=== PATIENT | male | born 1950 | race African-American/Black ===

== ENCOUNTER 2018-10-17 14:40 | Inpatient (IN) ==
[2018-10-17] MEDS ORDERED: ONDANSETRON 4 MG/2 ML VIAL IV STA (16:05)
[2018-10-17 16:49] LABS: Basophils % 0.4 % (0.0-0.8); Eosinophils % 0.4 % (0.00-10.9); Hematocrit 32.3 VOL% (42.0-52.0); Hemoglobin 10.2 GM/DL (14.0-18.0); Immature Granulocytes % 0.4 %; Immature Granulocytes Absolute 0.02 #; Lymphocytes # 1.5 10*3/uL (1.4-4.0); Lymphocytes % 30.8 % (21.2-54.2); Mean Corpuscular HGB Conc 31.6 GM/DL (32-36); Mean Platelet Volume 10.4 FL (9.6-12.0); Monocytes % 7.9 % (1.7-12.7); Neutrophils % 60.1 % (38.7-73.9); Platelet Count 223 T/CUMM (130-400); Red Blood Count 3.63 MC/CUMM (3.8-5.5); Red Cell Distribution Width 18.6 % (9.3-17.3); White Blood Count 4.8 T/CUMM (4-12)
[2018-10-17] MEDS ORDERED: ALBUTEROL/IPRATROPIUM 3 ML NEB RESP TX STA (16:49)
[2018-10-17] MEDS ORDERED: MEROPENEM 1,000 MG in SODIUM CHLORIDE 0.9% 100 ML IV STA ×2 (16:49→16:50)
[2018-10-17 17:13] LABS: Alanine Aminotransferase 11 U/L (16-61); Albumin 2.4 G/DL (3.4-5.0); Alkaline Phosphatase 130 U/L (45-117); Aspartate Amino Transferase 21 U/L (0-37); Blood Urea Nitrogen 70 MG/DL (7-18); Calcium 7.8 MG/DL (8.5-10.1); Glucose 102 MG/DL (74-106); Osmolality,Calculated 295.7 MOS/KG (273-304); Total Protein 5.9 G/DL (6.4-8.3); Troponin I 0.016 NG/ML (0.00-0.045)
[2018-10-17 17:33] LABS: Apearance,Urine Slightly Hazy (Clear); Blood, Urine Small mg/dL (Negative); Calcium Oxalate Crystals,Urine Occasional /HPF (Few); Glucose,Urine (UA) Negative (Negative); Hyaline Casts,Urine 48 /LPF (0-3); Ketones,Urine 5 mg/dL (Negative); Mucus,Urine Occasional /LPF (Occasional); Nitrite,Urine Negative (Negative); Protein,Urine 30 MG/DL; RBC,Urine 4 /HPF (0-4); Squamous Epithelial Cell,Urine Occasional /HPF (0-10); Urine Specific Gravity 1.026 (1.001-1.035); Urine Urobilinogen < 2.0 EU/DL (0.2-1.0); WBC,Urine 11 /HPF (0-6)
[2018-10-17 17:34] LABS: Bilirubin,Urine Small mg/dL (Negative); Urine Color Yellow (Yellow)
[2018-10-17] MEDS ORDERED: SODIUM POLYSTYRENE SULFATE 15 GM/60 ML BOTTLE PO STA (18:19)
[2018-10-17] MEDS: SODIUM BICARB INJ 50 MEQ in DEXTROSE 5% NACL 0.45% 1,000 ML IV SCH (20:05)
[2018-10-17] MEDS: CARVEDILOL 6.25 MG TABLET PO SCH (21:57)
[2018-10-17 23:03] LABS: Calcium 8.1 MG/DL (8.5-10.1); Osmolality,Calculated 302.4 MOS/KG (273-304)
[2018-10-18] MEDS: SODIUM BICARB INJ 50 MEQ in DEXTROSE 5% NACL 0.45% 1,000 ML IV SCH (05:25)
[2018-10-18] MEDS: MEROPENEM 500 MG in SODIUM CHLORIDE 0.9% 100 ML IV SCH ×2 (05:26→17:18)
[2018-10-18 05:43] LABS: Basophils % 0.5 % (0.0-0.8); Eosinophils % 0.7 % (0.00-10.9); Hematocrit 32.4 VOL% (42.0-52.0); Hemoglobin 10.4 GM/DL (14.0-18.0); Immature Granulocytes % 0.3 %; Immature Granulocytes Absolute 0.02 #; Lymphocytes # 1.4 10*3/uL (1.4-4.0); Lymphocytes % 24.5 % (21.2-54.2); Mean Corpuscular HGB Conc 32.1 GM/DL (32-36); Mean Corpuscular Volume 88.5 FL (87-102); Mean Platelet Volume 10.6 FL (9.6-12.0); Monocytes % 10.7 % (1.7-12.7); Neutrophils % 63.3 % (38.7-73.9); Platelet Count 200 T/CUMM (130-400); Red Blood Count 3.66 MC/CUMM (3.8-5.5); Red Cell Distribution Width 18.4 % (9.3-17.3); White Blood Count 5.9 T/CUMM (4-12)
[2018-10-18 06:16] LABS: Albumin 2.2 G/DL (3.4-5.0); Bilirubin,Total 0.6 MG/DL (0.2-1.0); Calcium 7.9 MG/DL (8.5-10.1); Osmolality,Calculated 304.4 MOS/KG (273-304); Total Protein 5.4 G/DL (6.4-8.3)
[2018-10-18] MEDS: OMEGA 3 ACID ETHYL ESTERS 1 GM CAPSULE PO SCH (09:24)
[2018-10-18] MEDS: CHOLECALCIFEROL 1,000 UNIT TABLET PO SCH (09:24)
[2018-10-18] MEDS: VITAMIN E 400 UNIT CAPSULE PO SCH (09:24)
[2018-10-18] MEDS: CLOPIDOGREL 75 MG TABLET PO SCH (09:24)
[2018-10-18] MEDS: SIMVASTATIN 40 MG TABLET PO SCH (09:24)
[2018-10-18] MEDS: CARVEDILOL 6.25 MG TABLET PO SCH ×2 (09:24→20:59)
[2018-10-18] MEDS: MULTIVITAMIN (CENTRUM) TABLET PO SCH (09:24)
[2018-10-18] MEDS: ASPIRIN EC 81 MG TABLET PO SCH (09:24)
[2018-10-18] MEDS ORDERED: SODIUM POLYSTYRENE SULFATE 15 GM/60 ML BOTTLE PO ONE (12:34)
[2018-10-19] MEDS: MEROPENEM 500 MG in SODIUM CHLORIDE 0.9% 100 ML IV SCH ×2 (05:06→16:42)
[2018-10-19 05:17] LABS: Basophils % 0.4 % (0.0-0.8); Eosinophils # 0.1 10*3/uL (0.0-0.87); Eosinophils % 1.5 % (0.00-10.9); Hematocrit 27.9 VOL% (42.0-52.0); Hemoglobin 9.1 GM/DL (14.0-18.0); Immature Granulocytes % 0.4 %; Immature Granulocytes Absolute 0.02 #; Lymphocytes # 1.7 10*3/uL (1.4-4.0); Lymphocytes % 31.6 % (21.2-54.2); Mean Corpuscular HGB Conc 32.6 GM/DL (32-36); Mean Corpuscular Volume 87.5 FL (87-102); Mean Platelet Volume 10.2 FL (9.6-12.0); Neutrophils % 52.1 % (38.7-73.9); Platelet Count 183 T/CUMM (130-400); Red Blood Count 3.19 MC/CUMM (3.8-5.5); Red Cell Distribution Width 18.3 % (9.3-17.3); White Blood Count 5.3 T/CUMM (4-12)
[2018-10-19 05:34] LABS: Alanine Aminotransferase 10 U/L (16-61); Alkaline Phosphatase 116 U/L (45-117); Aspartate Amino Transferase 17 U/L (0-37); Bilirubin,Total < 0.39 MG/DL (0.2-1.0); Blood Urea Nitrogen 71 MG/DL (7-18); Calcium 7.4 MG/DL (8.5-10.1); Glucose 144 MG/DL (74-106)
[2018-10-19] MEDS: ASPIRIN EC 81 MG TABLET PO SCH (09:32)
[2018-10-19] MEDS: CLOPIDOGREL 75 MG TABLET PO SCH (09:33)
[2018-10-19] MEDS: CARVEDILOL 6.25 MG TABLET PO SCH (09:33)
[2018-10-19] MEDS: OMEGA 3 ACID ETHYL ESTERS 1 GM CAPSULE PO SCH (09:33)
[2018-10-19] MEDS: CHOLECALCIFEROL 1,000 UNIT TABLET PO SCH (09:34)
[2018-10-19] MEDS: VITAMIN E 400 UNIT CAPSULE PO SCH (09:34)
[2018-10-19] MEDS: SIMVASTATIN 40 MG TABLET PO SCH (09:34)
[2018-10-19] MEDS: MULTIVITAMIN (CENTRUM) TABLET PO SCH (09:34)
[2018-10-19] MEDS: SODIUM BICARB INJ 100 MEQ in DEXTROSE 5% NACL 0.45% 1,000 ML IV SCH ×2 (11:27→20:42)
[2018-10-19] MEDS: LACTOBACILLUS ACIDOPHILUS/BULGARICUS CAPLET PO SCH (20:41)
[2018-10-19] MEDS: CARVEDILOL 3.125 MG TABLET PO SCH (20:41)
[2018-10-20] MEDS: MEROPENEM 500 MG in SODIUM CHLORIDE 0.9% 100 ML IV SCH ×2 (04:54→17:20)
[2018-10-20 06:32] LABS: Basophils % 0.5 % (0.0-0.8); Eosinophils # 0.1 10*3/uL (0.0-0.87); Eosinophils % 1.2 % (0.00-10.9); Hematocrit 27.8 VOL% (42.0-52.0); Hemoglobin 9.1 GM/DL (14.0-18.0); Immature Granulocytes % 0.5 %; Immature Granulocytes Absolute 0.03 #; Lymphocytes # 1.3 10*3/uL (1.4-4.0); Lymphocytes % 20.5 % (21.2-54.2); Mean Corpuscular HGB Conc 32.7 GM/DL (32-36); Mean Corpuscular Volume 86.6 FL (87-102); Mean Platelet Volume 10.8 FL (9.6-12.0); Monocytes % 14.9 % (1.7-12.7); Neutrophils % 62.4 % (38.7-73.9); Platelet Count 177 T/CUMM (130-400); Red Blood Count 3.21 MC/CUMM (3.8-5.5); Red Cell Distribution Width 18.5 % (9.3-17.3); White Blood Count 6.5 T/CUMM (4-12)
[2018-10-20 07:14] LABS: Albumin 1.8 G/DL (3.4-5.0); Bilirubin,Total 0.4 MG/DL (0.2-1.0); Calcium 7.2 MG/DL (8.5-10.1); Osmolality,Calculated 305.8 MOS/KG (273-304); Total Protein 4.8 G/DL (6.4-8.3)
[2018-10-20] MEDS: LACTOBACILLUS ACIDOPHILUS/BULGARICUS CAPLET PO SCH ×2 (08:39→21:12)
[2018-10-20] MEDS: ASPIRIN EC 81 MG TABLET PO SCH (08:40)
[2018-10-20] MEDS: MULTIVITAMIN (CENTRUM) TABLET PO SCH (08:40)
[2018-10-20] MEDS: CHOLECALCIFEROL 1,000 UNIT TABLET PO SCH (08:40)
[2018-10-20] MEDS: CLOPIDOGREL 75 MG TABLET PO SCH (08:40)
[2018-10-20] MEDS: OMEGA 3 ACID ETHYL ESTERS 1 GM CAPSULE PO SCH (08:41)
[2018-10-20] MEDS: CARVEDILOL 3.125 MG TABLET PO SCH ×2 (08:41→08:47)
[2018-10-20] MEDS: VITAMIN E 400 UNIT CAPSULE PO SCH (08:41)
[2018-10-20] MEDS: SODIUM BICARB INJ 100 MEQ in DEXTROSE 5% NACL 0.45% 1,000 ML IV SCH ×2 (10:11→21:15)
[2018-10-20] MEDS: SODIUM BICARB INJ 50 MEQ in DEXTROSE 5% NACL 0.45% 1,000 ML IV SCH (14:56)
[2018-10-20] MEDS: CHOLESTYRAMINE 4 GM PACK PO SCH (21:12)
[2018-10-20] MEDS: SIMVASTATIN 40 MG TABLET PO SCH (21:13)
[2018-10-21] MEDS: CARVEDILOL 3.125 MG TABLET PO SCH ×3 (04:08→20:36)
[2018-10-21 05:14] LABS: Basophils % 0.2 % (0.0-0.8); Eosinophils # 0.1 10*3/uL (0.0-0.87); Eosinophils % 1.2 % (0.00-10.9); Hematocrit 25.2 VOL% (42.0-52.0); Hemoglobin 8.3 GM/DL (14.0-18.0); Immature Granulocytes % 0.8 %; Immature Granulocytes Absolute 0.05 #; Lymphocytes # 1.7 10*3/uL (1.4-4.0); Lymphocytes % 27.8 % (21.2-54.2); Mean Corpuscular HGB Conc 32.9 GM/DL (32-36); Mean Corpuscular Volume 85.4 FL (87-102); Monocytes % 13.8 % (1.7-12.7); Neutrophils % 56.2 % (38.7-73.9); Platelet Count 162 T/CUMM (130-400); Red Blood Count 2.95 MC/CUMM (3.8-5.5); Red Cell Distribution Width 18.5 % (9.3-17.3)
[2018-10-21] MEDS: MEROPENEM 500 MG in SODIUM CHLORIDE 0.9% 100 ML IV SCH ×2 (05:20→18:11)
[2018-10-21 05:30] LABS: Albumin 1.7 G/DL (3.4-5.0); Bilirubin,Total 0.4 MG/DL (0.2-1.0); Osmolality,Calculated 303.7 MOS/KG (273-304); Total Protein 4.6 G/DL (6.4-8.3)
[2018-10-21] MEDS: OMEGA 3 ACID ETHYL ESTERS 1 GM CAPSULE PO SCH (08:43)
[2018-10-21] MEDS: MULTIVITAMIN (CENTRUM) TABLET PO SCH (08:44)
[2018-10-21] MEDS: CHOLECALCIFEROL 1,000 UNIT TABLET PO SCH (08:44)
[2018-10-21] MEDS: CHOLESTYRAMINE 4 GM PACK PO SCH ×2 (08:44→20:37)
[2018-10-21] MEDS: VITAMIN E 400 UNIT CAPSULE PO SCH (08:44)
[2018-10-21] MEDS: LACTOBACILLUS ACIDOPHILUS/BULGARICUS CAPLET PO SCH ×2 (08:44→20:36)
[2018-10-21] MEDS: ASPIRIN EC 81 MG TABLET PO SCH (08:44)
[2018-10-21] MEDS: CLOPIDOGREL 75 MG TABLET PO SCH (08:44)
[2018-10-21] MEDS ORDERED: MAGNESIUM SULF RIDER 2 GM in PREMIX 1 EACH IV PRN (13:29)
[2018-10-21] MEDS ORDERED: MAGNESIUM SULF RIDER 4 GM in PREMIX 1 EACH IV PRN (13:29)
[2018-10-21] MEDS: SODIUM BICARB INJ 100 MEQ in DEXTROSE 5% NACL 0.45% 1,000 ML IV SCH ×2 (17:32→20:39)
[2018-10-21] MEDS: SIMVASTATIN 40 MG TABLET PO SCH (20:37)
[2018-10-22] MEDS: MEROPENEM 500 MG in SODIUM CHLORIDE 0.9% 100 ML IV SCH ×2 (05:35→16:20)
[2018-10-22 06:13] LABS: Basophils % 0.6 % (0.0-0.8); Eosinophils # 0.1 10*3/uL (0.0-0.87); Eosinophils % 1.8 % (0.00-10.9); Hematocrit 31.7 VOL% (42.0-52.0); Hemoglobin 10.1 GM/DL (14.0-18.0); Immature Granulocytes % 0.6 %; Immature Granulocytes Absolute 0.04 #; Lymphocytes # 1.5 10*3/uL (1.4-4.0); Lymphocytes % 23.4 % (21.2-54.2); Mean Corpuscular HGB Conc 31.9 GM/DL (32-36); Mean Corpuscular Volume 88.3 FL (87-102); Mean Platelet Volume 10.9 FL (9.6-12.0); Monocytes % 14.2 % (1.7-12.7); Neutrophils % 59.4 % (38.7-73.9); Platelet Count 195 T/CUMM (130-400); Red Blood Count 3.59 MC/CUMM (3.8-5.5); Red Cell Distribution Width 18.7 % (9.3-17.3); White Blood Count 6.3 T/CUMM (4-12)
[2018-10-22 06:45] LABS: Calcium 7.8 MG/DL (8.5-10.1); Osmolality,Calculated 294.3 MOS/KG (273-304); Total Protein 5.8 G/DL (6.4-8.3)
[2018-10-22] MEDS: CHOLESTYRAMINE 4 GM PACK PO SCH ×2 (09:10→21:28)
[2018-10-22] MEDS: CLOPIDOGREL 75 MG TABLET PO SCH (09:11)
[2018-10-22] MEDS: OMEGA 3 ACID ETHYL ESTERS 1 GM CAPSULE PO SCH (09:11)
[2018-10-22] MEDS: MULTIVITAMIN (CENTRUM) TABLET PO SCH (09:11)
[2018-10-22] MEDS: CHOLECALCIFEROL 1,000 UNIT TABLET PO SCH (09:11)
[2018-10-22] MEDS: CARVEDILOL 3.125 MG TABLET PO SCH ×2 (09:11→21:28)
[2018-10-22] MEDS: VITAMIN E 400 UNIT CAPSULE PO SCH (09:12)
[2018-10-22] MEDS: ASPIRIN EC 81 MG TABLET PO SCH (09:12)
[2018-10-22] MEDS: LACTOBACILLUS ACIDOPHILUS/BULGARICUS CAPLET PO SCH ×2 (09:12→21:28)
[2018-10-22] MEDS: SIMVASTATIN 40 MG TABLET PO SCH (21:28)
[2018-10-22] MEDS: TAMSULOSIN 0.4 MG CAPSULE PO SCH (21:33)
[2018-10-23] MEDS: MEROPENEM 500 MG in SODIUM CHLORIDE 0.9% 100 ML IV SCH ×2 (05:12→16:16)
[2018-10-23] MEDS: SODIUM BICARB INJ 100 MEQ in DEXTROSE 5% NACL 0.45% 1,000 ML IV SCH ×2 (05:15→05:16)
[2018-10-23] MEDS: CHOLESTYRAMINE 4 GM PACK PO SCH ×3 (09:01→20:51)
[2018-10-23] MEDS: CHOLECALCIFEROL 1,000 UNIT TABLET PO SCH (09:02)
[2018-10-23] MEDS: OMEGA 3 ACID ETHYL ESTERS 1 GM CAPSULE PO SCH (09:02)
[2018-10-23] MEDS: CARVEDILOL 3.125 MG TABLET PO SCH ×2 (09:02→20:51)
[2018-10-23] MEDS: VITAMIN E 400 UNIT CAPSULE PO SCH (09:02)
[2018-10-23] MEDS: TAMSULOSIN 0.4 MG CAPSULE PO SCH ×2 (09:02→20:51)
[2018-10-23] MEDS: MULTIVITAMIN (CENTRUM) TABLET PO SCH (09:02)
[2018-10-23] MEDS: LACTOBACILLUS ACIDOPHILUS/BULGARICUS CAPLET PO SCH ×2 (09:02→20:51)
[2018-10-23 09:08] LABS: Basophils % 0.6 % (0.0-0.8); Eosinophils # 0.1 10*3/uL (0.0-0.87); Eosinophils % 1.8 % (0.00-10.9); Hematocrit 28.6 VOL% (42.0-52.0); Hemoglobin 9.2 GM/DL (14.0-18.0); Immature Granulocytes % 0.6 %; Immature Granulocytes Absolute 0.03 #; Lymphocytes # 1.1 10*3/uL (1.4-4.0); Lymphocytes % 22.1 % (21.2-54.2); Mean Corpuscular HGB Conc 32.2 GM/DL (32-36); Mean Corpuscular Volume 87.7 FL (87-102); Mean Platelet Volume 10.8 FL (9.6-12.0); Monocytes % 17.8 % (1.7-12.7); Neutrophils % 57.1 % (38.7-73.9); Platelet Count 197 T/CUMM (130-400); Red Blood Count 3.26 MC/CUMM (3.8-5.5); Red Cell Distribution Width 18.5 % (9.3-17.3); White Blood Count 5.1 T/CUMM (4-12)
[2018-10-23 09:24] LABS: Bilirubin,Total 0.6 MG/DL (0.2-1.0); Calcium 7.6 MG/DL (8.5-10.1); Osmolality,Calculated 296.8 MOS/KG (273-304); Total Protein 5.4 G/DL (6.4-8.3)
[2018-10-23 09:34] LABS: Eosinophils 2 % (0-10); Hypochromasia Slight; Lymphocytes 19 % (20-55); Platelet Estimate Adequate; Segmented Neutrophils 67 % (50-85); Total Cells Counted 100
[2018-10-23 09:35] LABS: Burr Cells Slight; Ovalocytes Slight
[2018-10-23] MEDS ORDERED: ALBUMIN 25% 25 GM in PREMIX 1 EACH IV ONE (10:00)
[2018-10-23] MEDS ORDERED: ALBUMIN 25% 12.5 GM in PREMIX 1 EACH IV ONE (10:25)
[2018-10-23] MEDS ORDERED: ALBUMIN 25% 12.5 GM/50 ML VIAL IV ONE (10:27)
[2018-10-23 11:12] LABS: Neutrophils,Peritoneal Fluid 8 %; RBC,Peritoneal Fluid 63 T/CUMM
[2018-10-23 11:44] LABS: Total Protein,Peritoneal Fluid 2.2 G/DL
[2018-10-23] MEDS: CLOPIDOGREL 75 MG TABLET PO SCH (13:51)
[2018-10-23] MEDS: ASPIRIN EC 81 MG TABLET PO SCH (13:51)
[2018-10-23] MEDS: SIMVASTATIN 40 MG TABLET PO SCH (20:51)
[2018-10-23] MEDS ORDERED: ONDANSETRON 4 MG/2 ML VIAL IV PRN (21:28)
[2018-10-23] MEDS ORDERED: PROMETHAZINE 25 MG/1 ML VIAL IM PRN (21:28)
[2018-10-24] MEDS: MEROPENEM 500 MG in SODIUM CHLORIDE 0.9% 100 ML IV SCH (05:47)
[2018-10-24] MEDS: SODIUM BICARB INJ 100 MEQ in DEXTROSE 5% NACL 0.45% 1,000 ML IV SCH (07:04)
[2018-10-24 07:52] LABS: Basophils % 0.4 % (0.0-0.8); Eosinophils # 0.1 10*3/uL (0.0-0.87); Eosinophils % 1.1 % (0.00-10.9); Hematocrit 27.8 VOL% (42.0-52.0); Hemoglobin 8.9 GM/DL (14.0-18.0); Immature Granulocytes % 0.5 %; Immature Granulocytes Absolute 0.03 #; Lymphocytes # 1.4 10*3/uL (1.4-4.0); Lymphocytes % 25.1 % (21.2-54.2); Mean Corpuscular Volume 86.9 FL (87-102); Mean Platelet Volume 11.1 FL (9.6-12.0); Monocytes % 17.5 % (1.7-12.7); Neutrophils % 55.4 % (38.7-73.9); Platelet Count 214 T/CUMM (130-400); Red Cell Distribution Width 18.2 % (9.3-17.3); White Blood Count 5.5 T/CUMM (4-12)
[2018-10-24 08:17] LABS: Eosinophils 2 % (0-10); Hypochromasia 1+; Lymphocytes 17 % (20-55); Platelet Estimate Adequate; Segmented Neutrophils 64 % (50-85); Total Cells Counted 100
[2018-10-24 08:21] LABS: Albumin 1.8 G/DL (3.4-5.0); Bilirubin,Total 0.6 MG/DL (0.2-1.0); Calcium 7.6 MG/DL (8.5-10.1); Osmolality,Calculated 290.3 MOS/KG (273-304); Total Protein 4.7 G/DL (6.4-8.3)
[2018-10-24] MEDS: VITAMIN E 400 UNIT CAPSULE PO SCH (08:39)
[2018-10-24] MEDS: LACTOBACILLUS ACIDOPHILUS/BULGARICUS CAPLET PO SCH (08:39)
[2018-10-24] MEDS: ASPIRIN EC 81 MG TABLET PO SCH (08:39)
[2018-10-24] MEDS: CHOLECALCIFEROL 1,000 UNIT TABLET PO SCH (08:39)
[2018-10-24] MEDS: CLOPIDOGREL 75 MG TABLET PO SCH (08:40)
[2018-10-24] MEDS: TAMSULOSIN 0.4 MG CAPSULE PO SCH (08:40)
[2018-10-24] MEDS: CARVEDILOL 3.125 MG TABLET PO SCH (08:40)
[2018-10-24] MEDS: MULTIVITAMIN (CENTRUM) TABLET PO SCH (08:40)
[2018-10-24] MEDS: CHOLESTYRAMINE 4 GM PACK PO SCH (08:40)
[2018-10-24] MEDS: OMEGA 3 ACID ETHYL ESTERS 1 GM CAPSULE PO SCH (08:40)
[2018-10-24 11:03] VITALS: BP 114/54
== END 2018-10-24 14:12 | disposition home or self-care (01) | DRG 682 ==
LOC: N.ED 14:40 → SUATTDRO 19:05 → N.EDINP 19:05 → SUPCPDRO 19:05 → N.4E 19:59
PROVIDERS: ADMIT Phlebology; ATTEND Hospitalist

== ENCOUNTER 2019-02-20 17:52 | Inpatient (IN) ==
[2019-02-20] MEDS ORDERED: FUROSEMIDE 100 MG/10 ML VIAL IV STA (19:02)
[2019-02-20] MEDS ORDERED: MORPHINE 4 MG/1 ML VIAL IV STA (19:02)
[2019-02-20] MEDS ORDERED: methylPREDNISolone SOD SUC 125 MG/2 ML VIAL IV STA (19:02)
[2019-02-20] MEDS ORDERED: ONDANSETRON 4 MG/2 ML VIAL IV STA (19:02)
[2019-02-20] MEDS ORDERED: ALBUTEROL/IPRATROPIUM 3 ML NEB RESP TX STA (19:02)
[2019-02-20 19:41] LABS: Basophils % 0.6 % (0.0-0.8); Eosinophils # 0.1 10*3/uL (0.0-0.87); Hematocrit 26.2 VOL% (42.0-52.0); Hemoglobin 7.9 GM/DL (14.0-18.0); Immature Granulocytes Absolute 0.07 #; Lymphocytes # 1.9 10*3/uL (1.4-4.0); Lymphocytes % 27.6 % (21.2-54.2); Mean Corpuscular HGB Conc 30.2 GM/DL (32-36); Mean Corpuscular Volume 87.3 FL (87-102); Mean Platelet Volume 9.1 FL (9.6-12.0); Monocytes % 12.8 % (1.7-12.7); Platelet Count 384 T/CUMM (130-400); Red Cell Distribution Width 17.2 % (9.3-17.3)
[2019-02-20 19:54] LABS: INR 1.3; PT Patient Result 14.2 SECS (9.6-12.2)
[2019-02-20 20:06] LABS: Albumin 2.5 G/DL (3.4-5.0); Bilirubin,Total 0.4 MG/DL (0.2-1.0); Calcium 7.8 MG/DL (8.5-10.1); Osmolality,Calculated 282.3 MOS/KG (273-304); Total Protein 6.8 G/DL (6.4-8.3)
[2019-02-20 22:32] LABS: Apearance,Urine CLEAR (Clear); Bacteria,Urine Occasional /HPF (Few); Bilirubin,Urine Negative (Negative); Blood, Urine Negative (Negative); Glucose,Urine (UA) Negative (Negative); Hyaline Casts,Urine 1 /LPF (0-3); Ketones,Urine Negative (Negative); Nitrite,Urine Negative (Negative); Protein,Urine Negative; RBC,Urine 1 /HPF (0-4); Squamous Epithelial Cell,Urine Occasional /HPF (0-10); Urine Color Straw (Yellow); Urine Specific Gravity 1.012 (1.001-1.035); Urine Urobilinogen < 2.0 EU/DL (0.2-1.0); WBC,Urine <1 /HPF (0-6)
[2019-02-20] MEDS ORDERED: ACETAMINOPHEN 325 MG TABLET PO PRN (22:45)
[2019-02-20] MEDS ORDERED: ZALEPLON 5 MG CAPSULE PO PRN (22:45)
[2019-02-20] MEDS ORDERED: guaiFENesin/DM ER 600-30 MG TABLET PO PRN (22:45)
[2019-02-20] MEDS ORDERED: DOCUSATE SODIUM 100 MG CAPSULE PO PRN (22:45)
[2019-02-20] MEDS ORDERED: MORPHINE 4 MG/1 ML VIAL IV PRN (22:45)
[2019-02-20] MEDS ORDERED: diphenhydrAMINE CAP 25 MG CAPSULE PO PRN (22:45)
[2019-02-20] MEDS ORDERED: ONDANSETRON 4 MG/2 ML VIAL IV PRN (22:45)
[2019-02-20] MEDS ORDERED: PROMETHAZINE 25 MG TABLET PO PRN (22:45)
[2019-02-21 06:13] LABS: Basophils % 0.2 % (0.0-0.8); Hematocrit 26.5 VOL% (42.0-52.0); Immature Granulocytes % 0.7 %; Immature Granulocytes Absolute 0.03 #; Lymphocytes % 21.2 % (21.2-54.2); Mean Corpuscular HGB Conc 30.2 GM/DL (32-36); Mean Corpuscular Volume 86.9 FL (87-102); Mean Platelet Volume 9.4 FL (9.6-12.0); Neutrophils % 75.9 % (38.7-73.9); Platelet Count 356 T/CUMM (130-400); Red Blood Count 3.05 MC/CUMM (3.8-5.5); Red Cell Distribution Width 17.1 % (9.3-17.3); White Blood Count 4.6 T/CUMM (4-12)
[2019-02-21 06:32] LABS: Osmolality,Calculated 276.8 MOS/KG (273-304)
[2019-02-21] MEDS: PANTOPRAZOLE 40 MG TABLET PO SCH (09:28)
[2019-02-21] MEDS: SIMVASTATIN 80 MG TABLET PO SCH (09:28)
[2019-02-21] MEDS: MEGESTROL 400 MG/10 ML UDCUP PO SCH ×3 (09:28→16:39)
[2019-02-21] MEDS: MULTIVITAMIN (CENTRUM) TABLET PO SCH (09:28)
[2019-02-21] MEDS: OMEGA 3 ACID ETHYL ESTERS 1 GM CAPSULE PO SCH (09:28)
[2019-02-21] MEDS: carvediloL 6.25 MG TABLET PO SCH ×2 (09:28→16:39)
[2019-02-21] MEDS: lisinopriL 20 MG TABLET PO SCH (09:28)
[2019-02-21] MEDS: FUROSEMIDE 40 MG/4 ML VIAL IV SCH ×2 (09:29→16:39)
[2019-02-21] MEDS: ENOXAPARIN 40 MG/0.4 ML SYRINGE SUBCUT SCH (09:35)
[2019-02-21] MEDS ORDERED: SIMETHICONE CHEW 80 MG TABLET PO PRN (14:07)
[2019-02-22] MEDS: MULTIVITAMIN (CENTRUM) TABLET PO SCH (09:06)
[2019-02-22] MEDS: MEGESTROL 400 MG/10 ML UDCUP PO SCH (09:06)
[2019-02-22] MEDS: FUROSEMIDE 40 MG/4 ML VIAL IV SCH (09:06)
[2019-02-22] MEDS: ENOXAPARIN 40 MG/0.4 ML SYRINGE SUBCUT SCH (09:07)
[2019-02-22] MEDS: SIMVASTATIN 80 MG TABLET PO SCH (09:07)
[2019-02-22] MEDS: carvediloL 6.25 MG TABLET PO SCH (09:07)
[2019-02-22] MEDS: OMEGA 3 ACID ETHYL ESTERS 1 GM CAPSULE PO SCH (09:07)
[2019-02-22] MEDS: lisinopriL 20 MG TABLET PO SCH (09:07)
[2019-02-22] MEDS: PANTOPRAZOLE 40 MG TABLET PO SCH (09:07)
[2019-02-22 11:53] VITALS: BP 97/60
== END 2019-02-22 12:15 | disposition home or self-care (01) | DRG 375 ==
LOC: N.ED 17:52 → N.EDINP 22:45 → N.4E 23:18 → UNDODISIN 02-22 12:15
PROVIDERS: ADMIT Internal Medicine Geriatric Medicine; ATTEND Internal Medicine Geriatric Medicine